=== PATIENT | female | born 1935 | race Two or more races ===

== ENCOUNTER 2021-09-13 09:43 | Inpatient (IN) | payer BC, MEDICAID ==
[~2021-09-13] VITALS: Ht 154.9 cm; Wt 59.0 kg
[~2021-09-13 09:43] MED LIST: FERR325T28 PO; LANTUS SQ; LISI20TA28 PO
[2021-09-13 10:09] LABS: BASOPHILS % (AUTO) 0.5 % (0-1); EOSINOPHILS # (AUTO) 0.1 X10'3 (0-0.9); EOSINOPHILS % (AUTO) 1.4 % (0-6); HEMATOCRIT 29.5 % (35.0-45.0); HEMOGLOBIN 9.7 g/dl (12.0-16.0); LYMPHOCYTES # (AUTO) 0.7 X10'3 (1.1-4.8); LYMPHOCYTES % (AUTO) 16.7 % (21-51); MEAN CORPUSCULAR HEMOGLOBIN 31.4 PG (27.0-31.0); MEAN CORPUSCULAR HGB CONC 32.9 g/dL (33.0-36.5); MEAN CORPUSCULAR VOLUME 95.4 FL (78-98); MEAN PLATELET VOLUME 7.2 FL (7.4-10.4); MONOCYTES # (AUTO) 0.2 X10'3 (0-0.9); MONOCYTES % (AUTO) 6.1 % (2-12); NEUTROPHILS % (AUTO) 75.3 % (42-75); PLATELET COUNT 185 X10'3 (140-440); RED BLOOD COUNT 3.09 X10'6 (4.20-5.60); RED CELL DISTRIBUTION WIDTH 16.8 % (11.5-14.5); WHITE BLOOD COUNT 3.9 X10'3 (4.5-11.0)
[2021-09-13 10:26] LABS: ALANINE AMINOTRANSFERASE 25 U/L (12-78); ALBUMIN 2.9 G/DL (3.4-5.0); ALBUMIN/GLOBULIN RATIO 0.5 (1.1-1.5); ALKALINE PHOSPHATASE 59 IU/L (46-116); ANION GAP 17 (8-16); ASPARTATE AMINO TRANSFERASE 19 U/L (10-37); BILIRUBIN,TOTAL 0.3 MG/DL (0.1-1.0); BLOOD UREA NITROGEN 51 MG/DL (7-18); BUN/CREATININE RATIO 19.4 (6.6-38.0); CALCIUM 9.4 MG/DL (8.5-10.1); CHLORIDE 103 MMOL/L (99-107); CREATININE 2.63 MG/DL (0.40-0.90); GLUCOSE 133 MG/DL (70-104); POTASSIUM 3.9 MMOL/L (3.5-5.1); SODIUM 136 MMOL/L (135-145); TOTAL CARBON DIOXIDE 15.9 MMOL/L (24-32); TOTAL PROTEIN 8.5 G/DL (6.4-8.2); eGFR 17 ML/MIN
[2021-09-13] MEDS ORDERED: pantoprazole 40MG/D5 100ML BAG 100 ML IV ONE (10:50)
[2021-09-13] MEDS ORDERED: ondansetron/PF 4mg/2ml inj IV ONE (10:50)
[2021-09-13] MEDS ORDERED: normal saline 1000ML IV soln IVB ONE (10:50)
[2021-09-13] MEDS ORDERED: [UNRECOGNIZED DRUG - OTHER] IV ONE ×2 (10:55→11:25)
[2021-09-13] MEDS ORDERED: PANTOPRAZOLE IV ONE ×2 (10:55→11:25)
[2021-09-13 11:38] LABS: CLARITY,URINE CLEAR (Clear); COLOR,URINE YELLOW (Yellow); GLUCOSE, URINE NEGATIVE (Neg); KETONES,URINE NEGATIVE (Neg); LEUKOCYTE ESTERASE ,URINE NEGATIVE (Neg); NITRITES, URINE NEGATIVE (Neg); OCCULT BLOOD,URINE TRACE-INTACT (Neg); PROTEIN,URINE TRACE mg/dl (Neg); UROBILINOGEN,URINE 0.2 E.U/dL (0.2-1.0)
[2021-09-13 11:47] LABS: UA COLLECTION TYPE OTHER
[2021-09-13 11:48] LABS: SQUAMOUS EPITHELIAL CELL,UR FEW /LPF (FEW)
[2021-09-13 11:49] LABS: BACTERIA,URINE FEW /HPF (Neg); RBC,URINE 0-2 /HPF (0-2); WBC,URINE 0-4 /HPF (0-4)
[2021-09-13] MEDS ORDERED: FERR-39 PO (13:57)
[2021-09-13] MEDS ORDERED: LEVO-144 PO (13:57)
[2021-09-13] MEDS ORDERED: LISI10TA27 PO (13:57)
[2021-09-13] MEDS ORDERED: morphine 2 MG/ML inj. syringe IV PRN (14:20)
[2021-09-13] MEDS ORDERED: magnesium Cl slow-release 64mg tablet PO PRN (14:20)
[2021-09-13] MEDS ORDERED: magnesium 4gm in 100ml NS 100 ML IV PRN (14:20)
[2021-09-13] MEDS ORDERED: potassium Cl 20 mEq SR tablet PO PRN (14:20)
[2021-09-13] MEDS ORDERED: potassium CL 10mEq/100ml bag 100 ML IV PRN (14:20)
[2021-09-13] MEDS ORDERED: HYDROcodone/acetaminophen 5mg/325mg tablet PO PRN (14:20)
[2021-09-13] MEDS ORDERED: normal saline 1000ml 1,000 ML IV SCH (14:20)
[2021-09-13] MEDS ORDERED: ondansetron/PF 4mg/2ml inj IV PRN (14:20)
[2021-09-13] MEDS ORDERED: acetaminophen 325mg tablet PO PRN ×2 (14:20)
[2021-09-13] MEDS ORDERED: magnesium 2GM in 50ml NS 50 ML IV PRN (14:20)
[2021-09-13] MEDS ORDERED: dextrose 50%-water 50ml dispensing syringe IV PRN ×2 (14:25)
[2021-09-13] MEDS ORDERED: dextrose ORAL solution 15 GM/59 ML bottle PO PRN ×2 (14:25)
[2021-09-13] MEDS ORDERED: insulin Lispro (HumaLOG) vial - multi-dose SQ SCH (14:25)
[2021-09-13] MEDS ORDERED: MESSAGE TO PHARMACY PO ONE (14:25)
[2021-09-13] MEDS ORDERED: glucagon, human recombinant 1mg kit SUBCUT PRN (14:25)
[2021-09-13] MEDS ORDERED: amLODIPine 5mg tablet PO SCH (14:40)
[2021-09-13] MEDS ORDERED: hydrALAZINE 25 MG tablet PO PRN (14:40)
[2021-09-13] MEDS: metroNIDAZOLE-Flagyl 500mg/NS 100 ML IV SCH (15:28)
[2021-09-13] MEDS: NIFEdipine XL 30mg tablet PO SCH (16:09)
--- NOTE | 2021-09-13 17:20 | NUR ---
pt to mri.
--- NOTE | 2021-09-13 17:49 | NUR ---
PT BACK IN THE ROOM FROM MRI.
[2021-09-13] MEDS: sodium bicarbonate (8.4%) inj. 150 MEQ in dextrose 5%-water 1,000 ML IV SCH (18:06)
[2021-09-13 18:34] LABS: FERRITIN 349 NG/ML (8-252)
[2021-09-13] MEDS ORDERED: clopidogrel 300mg tablet PO ONE (18:40)
[2021-09-13 18:43] LABS: % IRON SATURATION 43 % (11-46); IRON 52 UG/DL (49-151); TOTAL IRON BINDING CAPACITY 120 UG/DL (259-388)
[2021-09-13] MEDS: K and/or MAG REPLACEMENT MC SCH (20:00)
[2021-09-13] MEDS: heparin, porcine 5000 units/ml vial SQ SCH (20:15)
[2021-09-13] MEDS: aspirin 81mg, enteric-coated 1 TAB TABLET.DR PO SCH (20:17)
--- NOTE | 2021-09-13 20:50 | NUR ---
Spoke to Dr Bland concerning pt's MRI results. Adviced to put in consult with Neurology. Neurology consult placed by juan carlos Rey is currently in room.
[2021-09-13] MEDS ORDERED: temazepam 15mg capsule PO PRN (21:00)
--- NOTE | 2021-09-13 21:04 | NUR ---
teleneurologist is speaking to pt and family at bedside
--- NOTE | 2021-09-13 21:09 | NUR ---
SPOKE TO DR SUMNER, TELENEUROLOGY. HE REQUESTED DR SHOEMAKER'S PHONE NUMBER.
[2021-09-13 23:20] VITALS: BP 118/50
[2021-09-13] MEDS: insulin glargine (Lantus) pen - multi-dose SQ SCH (23:58)
[2021-09-14 02:00] VITALS: BP 102/50
[2021-09-14 06:00] VITALS: BP 113/59
[2021-09-14 07:57] LABS: BASOPHILS % (AUTO) 0.6 % (0-1); EOSINOPHILS % (AUTO) 1.2 % (0-6); HEMATOCRIT 23.3 % (35.0-45.0); HEMOGLOBIN 8.1 g/dl (12.0-16.0); LYMPHOCYTES # (AUTO) 0.7 X10'3 (1.1-4.8); LYMPHOCYTES % (AUTO) 23.4 % (21-51); MEAN CORPUSCULAR HGB CONC 34.8 g/dL (33.0-36.5); MEAN CORPUSCULAR VOLUME 91.9 FL (78-98); MEAN PLATELET VOLUME 7.7 FL (7.4-10.4); MONOCYTES # (AUTO) 0.3 X10'3 (0-0.9); MONOCYTES % (AUTO) 8.4 % (2-12); NEUTROPHILS % (AUTO) 66.4 % (42-75); PLATELET COUNT 165 X10'3 (140-440); RED BLOOD COUNT 2.54 X10'6 (4.20-5.60); RED CELL DISTRIBUTION WIDTH 16.9 % (11.5-14.5); WHITE BLOOD COUNT 3.1 X10'3 (4.5-11.0)
[2021-09-14] MEDS: levoTHYROXINE 25mcg tablet PO SCH (07:59)
[2021-09-14] MEDS: aspirin 81mg, enteric-coated 1 TAB TABLET.DR PO SCH (07:59)
[2021-09-14] MEDS: NIFEdipine XL 30mg tablet PO SCH (07:59)
[2021-09-14] MEDS: heparin, porcine 5000 units/ml vial SQ SCH ×2 (08:00→20:46)
[2021-09-14] MEDS ORDERED: lisinopril 10 MG tablet PO SCH (08:00)
[2021-09-14] MEDS: metroNIDAZOLE-Flagyl 500mg/NS 100 ML IV SCH (08:00)
[2021-09-14 08:13] LABS: ALANINE AMINOTRANSFERASE 19 U/L (12-78); ALBUMIN 2.6 G/DL (3.4-5.0); ALBUMIN/GLOBULIN RATIO 0.6 (1.1-1.5); ALKALINE PHOSPHATASE 49 IU/L (46-116); ANION GAP 15 (8-16); ASPARTATE AMINO TRANSFERASE 14 U/L (10-37); BILIRUBIN,TOTAL 0.2 MG/DL (0.1-1.0); BLOOD UREA NITROGEN 52 MG/DL (7-18); BUN/CREATININE RATIO 20.2 (6.6-38.0); CALCIUM 8.6 MG/DL (8.5-10.1); CHLORIDE 104 MMOL/L (99-107); CHOL/HDL RATIO 3.3 (0.00-4.99); CHOLESTEROL 124 MG/DL (0-200); CREATININE 2.58 MG/DL (0.40-0.90); GLUCOSE 123 MG/DL (70-104); HDL CHOLESTEROL 38 MG/DL (35-60); LACTATE DEHYDROGENASE 108 U/L (81-234); LDL CHOLESTEROL 69 MG/DL (50-100); POTASSIUM 3.4 MMOL/L (3.5-5.1); SODIUM 139 MMOL/L (135-145); TOTAL CARBON DIOXIDE 20.4 MMOL/L (24-32); TOTAL PROTEIN 7.1 G/DL (6.4-8.2); TRIGLYCERIDES 62 MG/DL (20-135); eGFR 18 ML/MIN
[2021-09-14] MEDS: sodium bicarbonate (8.4%) inj. 150 MEQ in dextrose 5%-water 1,000 ML IV SCH ×3 (08:28→20:46)
[2021-09-14] MEDS: K and/or MAG REPLACEMENT MC SCH ×2 (08:28→20:00)
[2021-09-14 11:00] VITALS: BP 106/57
--- NOTE | 2021-09-14 12:04 | NUR ---
Age Screen: Pt admit dx ANUP, CKD, HTN, Pre DM, and HT-H. Pt w/ mild weakness and no edema noted. Pt on carbohydrate controlled diet; pending PO trends. Current wt not scaled; no documented hx of wt loss per EMR.No integumentary symptoms Noted. A1c of 5.7; appropriate per ADA guidelines. No DM education warranted at this time. LB 09/13, will continue to monitor Addendum: 09/14/21 at 1205 by Chong Uriarte - [employer]orer [email or web address] Amended: Links added. Addendum: 09/14/21 at [address] I have reviewed assessment by technical internship
[2021-09-14 18:00] VITALS: BP 110/50
[2021-09-14] MEDS: insulin glargine (Lantus) pen - multi-dose SQ SCH (21:00)
[2021-09-14 22:00] VITALS: BP 133/77
[2021-09-15 02:00] VITALS: BP 118/58
[2021-09-15 06:00] VITALS: BP 152/79
[2021-09-15 07:29] LABS: BASOPHILS % (AUTO) 0.6 % (0-1); EOSINOPHILS % (AUTO) 0.7 % (0-6); HEMATOCRIT 22.6 % (35.0-45.0); HEMOGLOBIN 7.8 g/dl (12.0-16.0); LYMPHOCYTES # (AUTO) 0.9 X10'3 (1.1-4.8); LYMPHOCYTES % (AUTO) 28.9 % (21-51); MEAN CORPUSCULAR HEMOGLOBIN 31.9 PG (27.0-31.0); MEAN CORPUSCULAR HGB CONC 34.3 g/dL (33.0-36.5); MEAN CORPUSCULAR VOLUME 92.9 FL (78-98); MEAN PLATELET VOLUME 7.2 FL (7.4-10.4); MONOCYTES # (AUTO) 0.3 X10'3 (0-0.9); MONOCYTES % (AUTO) 9.6 % (2-12); NEUTROPHILS # (AUTO) 1.9 X10'3 (1.8-7.7); NEUTROPHILS % (AUTO) 60.2 % (42-75); PLATELET COUNT 155 X10'3 (140-440); RED BLOOD COUNT 2.43 X10'6 (4.20-5.60); RED CELL DISTRIBUTION WIDTH 17.5 % (11.5-14.5); WHITE BLOOD COUNT 3.1 X10'3 (4.5-11.0)
[2021-09-15 07:45] LABS: ALANINE AMINOTRANSFERASE 15 U/L (12-78); ALBUMIN 2.4 G/DL (3.4-5.0); ALBUMIN/GLOBULIN RATIO 0.5 (1.1-1.5); ALKALINE PHOSPHATASE 44 IU/L (46-116); ANION GAP 8 (8-16); ASPARTATE AMINO TRANSFERASE 14 U/L (10-37); BILIRUBIN,TOTAL 0.3 MG/DL (0.1-1.0); BLOOD UREA NITROGEN 43 MG/DL (7-18); BUN/CREATININE RATIO 18.4 (6.6-38.0); CALCIUM 7.8 MG/DL (8.5-10.1); CHLORIDE 104 MMOL/L (99-107); CREATININE 2.34 MG/DL (0.40-0.90); GLUCOSE 114 MG/DL (70-104); SODIUM 144 MMOL/L (135-145); TOTAL CARBON DIOXIDE 31.8 MMOL/L (24-32); eGFR 20 ML/MIN
--- NOTE | 2021-09-15 07:53 | NUR ---
acting as resource RN, received call from lab with critical value, potassium 3.0...intervention completed, MD notified, primary RN notified
--- NOTE | 2021-09-15 07:58 | NUR ---
Page Sent PAGER ID: [phone] MESSAGE: SHIRA [id number]: [facility] 4011A...CRITICAL LAB...POTASSIUM 3.0
[2021-09-15] MEDS: K and/or MAG REPLACEMENT MC SCH (08:16)
[2021-09-15] MEDS: aspirin 81mg, enteric-coated 1 TAB TABLET.DR PO SCH (08:18)
[2021-09-15] MEDS: NIFEdipine XL 30mg tablet PO SCH (08:18)
[2021-09-15] MEDS: heparin, porcine 5000 units/ml vial SQ SCH (08:19)
[2021-09-15] MEDS: levoTHYROXINE 25mcg tablet PO SCH (08:19)
[2021-09-15] MEDS: potassium Cl 20 mEq SR tablet PO PRN ×2 (08:19→12:14)
--- NOTE | 2021-09-15 13:45 | NUR ---
Patient in room [facility] 4011A. I have received report from EVELYN BEGUM and had the opportunity to ask questions and assume patient care.
[2021-09-15 14:00] VITALS: BP 118/62
[2021-09-15] MEDS ORDERED: ASPI-1071 PO (14:01)
[2021-09-15] MEDS ORDERED: LISI10TA27 PO (14:01)
[2021-09-15] MEDS ORDERED: NIFE30TA95 PO (14:01)
--- NOTE | 2021-09-15 15:45 | NUR ---
IV REMOVED, NO COMPLICATIONS. TELE MONITOR REMOVED. ASSISTED PT WITH DRESSING, GATHERED BELONGINGS, ASSISTED INTO WHEELCHAIR AND WHEELED DOWN TO DAUGHTER IN PRIVATE VEHICLE...DC INSTRUCTIONS GONE OVER WITH PT AND DAUGHTER
[2021-09-15] MEDS ORDERED: OMEP20CA15 PO (17:02)
[2021-09-15 17:10] LABS: A/G RATIO 0.7 (0.7-1.7); ALBUMIN 2.9 g/dL (2.9-4.4); ANTINUCLEAR ANTIBODIES Negative (Negative); ANTISTREPTOLYSIN O AB <20.0 IU/mL (0.0-200.0); BETA GLOBULIN 2.4 g/dL (0.7-1.3); GAMMA GLOBULIN 0.7 g/dL (0.4-1.8); GLOBULIN, TOTAL 4.2 g/dL (2.2-3.9); M-SPIKE 1.9 g/dL (Not Observed); PROTEIN, TOTAL, SERUM 7.1 g/dL (6.0-8.5)
== END 2021-09-15 15:30 | disposition home or self-care (01) | DRG 64 ==
LOC: ER 09:43 → ED HOLD 13:51 → ORTHO 4S 22:50
PROVIDERS: ADMIT Internal Medicine; ATTEND Internal Medicine
DX: I63.9 Cerebral infarction, unspecified (principal); U07.1 COVID-19; N17.9 Acute kidney failure, unspecified; N18.4 Chronic kidney disease, stage 4 (severe); R55 Syncope and collapse; I12.9 Hypertensive chronic kidney disease with stage 1 through stage 4 chronic kidney disease, or unspecified chronic kidney disease; E11.22 Type 2 diabetes mellitus with diabetic chronic kidney disease; E03.9 Hypothyroidism, unspecified; D70.9 Neutropenia, unspecified; D64.9 Anemia, unspecified; Z79.899 Other long term (current) drug therapy; Z79.82 Long term (current) use of aspirin
CPT/HCPCS: 36415; 70450; 70544; 70551; 71045; 76770; 80053; 80061; 81001; 82728; 82948; 83540; 83550; 83605; 83615; 83880; 84132; 84155; 84165; 84484; 85025; 86038; 86060; 86592; 87040; 87081; 87635; 93005; 93880; 97116; 97161; 97530; 99285; C9113; G0378; J1644; J1815; J3490; J7030; J7070